=== PATIENT | female | born 1990 | race Asian ===

== ENCOUNTER 2021-02-13 14:06 | Emergency (ER) | payer MEDICAID ==
--- NOTE | 2021-02-13 14:41 | ED Physician Documentation ---
PD HPI ABD PAIN - Stated complaint Stated Complaint: DIZZY/ACHY/STOMACH PX - Chief complaint Chief Complaint: Abd Pain - History obtained from History obtained from: Patient - Additional information Additional information: 30-year-old woman with a history of alcohol use in remission, nonspecified psychiatric disorder and remote history of methamphetamine use but no history of abdominal issues presents with about 2 months of abdominal burning worse after eating associated with 25 pound weight loss and generalized aches that started after ceasing ziprasidone. She assumed it was related withdrawal symptoms but despite giving it 2 months the symptoms are persistent and severe. It is associated with some vaginal discharge as well. She is not sexually active. Review of Systems Ten Systems: 10 systems reviewed and negative Constitutional: reports: Chills, Myalgias, Fatigue, Weight Loss, Sweats. denies: Fever Cardiac: denies: Chest pain / pressure, Palpitations Respiratory: denies: Dyspnea, Cough PD PAST MEDICAL HISTORY - Present Medications Home Medications: Ambulatory Orders Medication Instructions Recorded Confirmed Amox/Clav 875/125 [Augmentin] 1 each PO Q12H #20 tablet 02/13/21 Omeprazole 40 mg PO DAILY #30 cap 02/13/21 metroNIDAZOLE [Flagyl] 500 mg PO BID #14 tablet 02/13/21 - Allergies Allergies/Adverse Reactions: Allergies Allergy/AdvReac Type Severity Reaction Status Date / Time No Known Drug Allergies Allergy Verified 02/13/21 14:20 PD ED PE NORMAL - Vitals Vital signs reviewed: Yes - General General: Alert and oriented X 3, No acute distress - Cardiac Cardiac: RRR, No murmur - Respiratory Respiratory: No respiratory distress, Clear bilaterally - Abdomen Abdomen: Normal bowel sounds, Soft, Non tender - Derm Derm: Normal color, Warm and dry - Neuro Neuro: Alert and oriented X 3, Normal speech Results - Vitals Vitals: Vital Signs - 24 hr 02/13/21 02/13/21 14:12 14:28 Temperature 36.8 C 36.8 C Heart Rate 96 96 Respiratory 22 22 Rate Blood Pressure 158/104 H 158/104 H O2 Saturation 99 99 Oxygen O2 Source Room air - Labs Labs: Microbiology 02/13/21 15:43 Wet Prep - Final Genital - Vaginal Laboratory Tests 02/13/21 02/13/21 02/13/21 14:45 15:09 15:09 WBC 9.2 RBC 5.13 Hgb 15.6 Hct 46.6 MCV 90.8 MCH 30.4 MCHC 33.5 RDW 13.2 Plt Count 252 MPV 10.3 Neut # (Auto) 7.4 H Lymph # (Auto) 1.3 L St[place] # (Auto) 0.4 Eos # (Auto) 0.0 Baso # (Auto) 0.0 Absolute Nucleated RBC 0.00 Nucleated RBC % 0.0 Sodium 138 Potassium 3.9 Chloride 104 Carbon Dioxide 16 L Anion Gap 18.0 H BUN 10 Creatinine 0.8 Estimated GFR (MDRD) 84 L Glucose 83 Calcium 9.8 Total Bilirubin 1.5 H AST 20 ALT 17 Alkaline Phosphatase 53 Total Protein 8.9 H Albumin 5.4 Globulin 3.5 Albumin/Globulin Ratio 1.5 Lipase 25 Urine Color DARK YELLOW Urine Clarity CLOUDY Urine pH 5.5 Ur Specific Noble >=1.030 H Urine Protein TRACE Urine Glucose (UA) NEGATIVE Urine Ketones >=80 H Urine Occult Blood LARGE H Urine Nitrite NEGATIVE Urine Bilirubin NEGATIVE Urine Urobilinogen 0.2 (NORMAL) Ur Leukocyte Esterase TRACE H Urine RBC 11-25 H Urine WBC 4-5 Ur Squamous Epith Cells FEW Squamous Amorphous Sediment Few Urine Bacteria Few Urine Casts 0-2 Hyaline Casts Urine Mucus Few Strands Ur Microscopic Review INDICATED Urine Culture Comments INDICATED Urine HCG, Qual NEGATIVE PD MEDICAL DECISION MAKING - ED course ED course: 30-year-old woman presents with upper abdominal pain a burning sensation worse with eating consistent with gastritis. But she is found today to be dehydrated with trichomonas. Concern for AKA but says she has not been drinking recently. That said she also says she is not sexually active for about a year. She appears well and has a benign examination so we will trial Augmentin and Flagyl for the UTI and trichomonas and a PPI pending follow-up. Departure - Departure Disposition: 01 Home, Self Care Clinical Impression: Dehydration, Trichomonal infection Abdominal pain Qualifiers: Abdominal location: epigastric Qualified Code(s): R10.13 - Epigastric pain Urinary tract infection Qualifiers: Urinary tract infection type: acute cystitis Hematuria presence: with hematuria Qualified Code(s): N30.01 - Acute cystitis with hematuria Condition: Good Record reviewed to determine appropriate education?: Yes Instructions: ED Abdominal Pain Unkn Cause, ED UTI Cystitis Female Prescriptions: Amox/Clav 875/125 [Augmentin] 1 each PO Q12H #20 tablet metroNIDAZOLE [Flagyl] 500 mg PO BID #14 tablet Omeprazole 40 mg PO DAILY #30 cap Comments: As discussed, you were seen today and found to have dehydration. I presume you have gastritis or ulcer as well given your burning upper abdominal pain but she also have a gas-forming UTI. We are culturing your urine and if an antibiotic change is necessary we will call you in a couple of days. I do recommend talking with your doctor about both GI and urology referrals given your frequent UTIs. Return if worsening.
[2021-02-13] MEDS ORDERED: IOPAMIDOL-300 100 ML VIAL ONE (14:46)
[2021-02-13 15:05] LABS: GLUCOSE, URINE (UA) NEGATIVE (NEGATIVE); KETONES,URINE (UA) >=80 mg/dL (NEGATIVE); LEUKOCYTE ESTERASE, URINE TRACE (NEGATIVE); NITRITE,URINE NEGATIVE (NEGATIVE); OCCULT BLOOD,URINE LARGE (NEGATIVE); PH,URINE 5.5 PH (5.0-7.5); PROTEIN,URINE TRACE mg/dL (NEGATIVE); UROBILINOGEN,URINE 0.2 (NORMAL) E.U./dL (NORMAL)
[2021-02-13 15:16] LABS: CLARITY,URINE CLOUDY (CLEAR); HCG UR QUAL NEGATIVE
[2021-02-13 15:17] LABS: AMORPHOUS SEDIMENT,UR Few /LPF; BACTERIA,URINE Few /HPF (None Seen); ICTOTEST,URINE NEGATIVE; MUCUS,URINE Few Strands; SQUAMOUS EPITHELIAL CELL,UR FEW Squamous (<= Few)
[2021-02-13 15:18] LABS: BILIRUBIN,URINE NEGATIVE (NEGATIVE); CASTS, URINE 0-2 Hyaline Casts /LPF
[2021-02-13 15:19] LABS: BASOPHILS % (AUTO) 0.2 %; EOSINOPHILS % (AUTO) 0.1 %; HCT - HEMATOCRIT 46.6 % (37.0-47.0); HGB - HEMOGLOBIN 15.6 g/dL (12.0-16.0); LYMPHOCYTES # (AUTO) 1.3 10^3/uL (1.5-3.5); LYMPHOCYTES % (AUTO) 13.6 %; MEAN CORPUSCULAR HEMOGLOBIN 30.4 pg (27.0-31.0); MEAN CORPUSCULAR HGB CONC 33.5 g/dL (32.0-36.0); MEAN CORPUSCULAR VOLUME 90.8 fL (81.0-99.0); MEAN PLATELET VOLUME 10.3 fL (7.9-10.8); MONOCYTES # (AUTO) 0.4 10^3/uL (0.0-1.0); MONOCYTES % (AUTO) 4.7 %; NEUTROPHILS # (AUTO) 7.4 10^3/uL (1.5-6.6); PLT - PLATELET COUNT 252 10^3/uL (130-450); RED BLOOD COUNT 5.13 10^6/uL (4.20-5.40); RED CELL DISTRIBUTION WIDTH 13.2 % (12.0-15.0); WHITE BLOOD COUNT 9.2 x10^3/uL (4.8-10.8)
[2021-02-13 15:30] LABS: ALBUMIN 5.4 g/dL (3.2-5.5); ALBUMIN/GLOBULIN RATIO 1.5 (1.0-2.2); BILIRUBIN,TOTAL 1.5 mg/dL (0.2-1.0); CALCIUM 9.8 mg/dL (8.5-10.3); CREATININE 0.8 mg/dL (0.4-1.0); POTASSIUM 3.9 mmol/L (3.5-5.0); TOTAL PROTEIN 8.9 g/dL (6.7-8.2)
[2021-02-13] MEDS ORDERED: SODIUM CHLORIDE 0.9% 1,000 ML IV STA (15:33)
--- NOTE | 2021-02-13 16:24 | CT Report ---
PROCEDURE: Abdomen/Pelvis W INDICATIONS: IV only, abd pain CONTRAST: IV CONTRAST: Isovue 300 ml: 100 PO CONTRAST: *NO PO CONTRAST TECHNIQUE: After the administration of intravenous contrast, 5 mm thick sections acquired from the diaphragms to the symphysis. 5 mm thick coronal and sagittal reformats were acquired. For radiation dose reducti on, the following was used: automated exposure control, adjustment of mA and/or kV according to ephraim ent size. COMPARISON: None. FINDINGS: Image quality: Excellent. ABDOMEN: Lung bases: Lung bases are clear. Heart size is normal. Solid organs: Liver and spleen are normal in size and enhancement. Gallbladder is unremarkable. Bi liary system is non dilated. Pancreas enhances normally. No adrenal nodules. Kidneys demonstrate n ormal size and enhancement, without hydronephrosis. Peritoneum and bowel: Bowel loops demonstrate normal wall thickness and caliber. Normal appendix. N o free fluid or air. Nodes and vessels: No retroperitoneal or mesenteric adenopathy by size criteria. Aorta and inferior vena cava are normal in size. Miscellaneous: No ventral hernias. PELVIS: Genitourinary: The bladder is decompressed, with associated wall thickening. A few foci of gas are se en in the nondependent portion of the bladder. Miscellaneous: No inguinal hernias or adenopathy. Bones: No suspicious bony lesions. No vertebral body compression fractures. IMPRESSION: 1. Bladder wall thickening and a few foci of gas within the bladder are suspicious for cystitis with a gas-forming organism if there has been no recent instrumentation. 2. Otherwise, no acute abnormality is identified in the abdomen or pelvis. Reviewed by: Manpreet Chahal MD on 02/13/2021 4:23 PM PDT Approved by: Manpreet Chahal MD on 02/13/2021 4:23 PM PDT Station ID: [id number]
[2021-02-13 16:41] VITALS: BP 128/82
[2021-02-13 17:18] LABS: BACTERIAL VAGINOSIS DNA NEGATIVE (NEGATIVE); CANDIDA GLABRATA DNA NEGATIVE (NEGATIVE); CANDIDA GROUP DNA NEGATIVE (NEGATIVE); CANDIDA KRUSEI DNA NEGATIVE (NEGATIVE); TRICHOMONAS VAGINALIS DNA POSITIVE (NEGATIVE)
[2021-02-13] MEDS ORDERED: IOPAMIDOL-300 100 ML VIAL IVP ONE (21:01)
== END 2021-02-13 16:45 | disposition home or self-care (01) ==
LOC: ED 14:06
DX: E86.0 Dehydration (principal); A59.01 Trichomonal vulvovaginitis; N30.01 Acute cystitis with hematuria
CPT/HCPCS: 36415; 74177; 80053; 81001; 81025; 83690; 85025; 87086; 87210; 87481; 87661; 87801; 99284; Q9967; 81003

== ENCOUNTER 2024-01-28 19:32 | Emergency (ER) | payer BC, MEDICAID ==
[2024-01-28 20:26] VITALS: O2SAT 100
--- NOTE | 2024-01-28 23:46 | ED Physician Documentation ---
History of Present Illness - Stated complaint Stated Complaint: BACK PX - Chief complaint Chief Complaint: Back Pain - History obtained from History obtained from: Patient - Additonal information Additional information: 33-year-old woman with history of sciatica presents with mid lower back pain radiating to the right leg worsening over the past several days, ongoing for the past 6 months. Unrelieved with home gabapentin. Patient denies urinary or fecal incontinence or retention, groin numbness, weakness in the extremities. PD PAST MEDICAL HISTORY - Past Medical History Past Medical History: Yes Cardiovascular: None Respiratory: None, Cystic fibrosis Neuro: None Endocrine/Autoimmune: None GI: None ELECTROMATIC TYPIST: None : None HEENT: None Psych: None Musculoskeletal: None Derm: None Other Past Medical History: SLEEP PROBLEM.... - Past Surgical History Past Surgical History: No - Present Medications Home Medications: Ambulatory Orders Medication Instructions Recorded Confirmed Gabapentin [Neurontin] 300 mg PO DAILY 01/28/24 methocarbamoL [Robaxin] 500 mg PO Q6H #20 tablet 01/28/24 - Allergies Allergies/Adverse Reactions: Allergies Allergy/AdvReac Type Severity Reaction Status Date / Time No Known Drug Allergies Allergy Verified 01/28/24 20:17 - Social History Does the pt smoke?: Yes Smoking Status: Current every day smoker Does the pt drink ETOH?: Yes Does the pt have substance abuse?: No - Immunizations Immunizations are current?: No - POLST Patient has POLST: No PD ED PE NORMAL - Vitals Vital signs reviewed: Yes - General General: Alert and oriented X 3, No acute distress, Well developed/nourished - HEENT HEENT: Atraumatic, PERRL, EOMI - Neck Neck: No bony TTP - Back Back: No spinal TTP - Derm Derm: Normal color, Warm and dry - Extremities Extremities: No deformity, No tenderness to palpate, Normal ROM s pain, Other (CSM intact bilateral lower extremity) - Neuro Neuro: No motor deficit, No sensory deficit Results - Vitals Vitals: Vital Signs - 24 hr 01/28/24 01/28/24 20:07 22:44 Temperature 36.7 C Heart Rate 77 76 Respiratory 16 Rate Blood Pressure 137/80 H 147/86 H O2 Saturation 100 100 Oxygen O2 Source Room air PD Medical Decision Making - ED course ED course: 33-year-old woman presents with sciatica symptoms for the past 6 months, worsen ing over the past several days along with some right lower back spasm. Toradol and Robaxin provided and prescription sent to [facility]. Discussed symptomatic therapy and need for physical therapy. She will follow-up outpatient in walk-in clinic. Return precautions given Departure - Departure Disposition: 01 Home, Self Care Clinical Impression: Back pain, Sciatica Condition: Stable Instructions: ED Sciatica Prescriptions: methocarbamoL [Robaxin] 500 mg PO Q6H #20 tablet Comments: You were seen in the emergency department for back pain. Prescription for robaxin sent to [facility]. Please follow-up with your primary care provider and return to the emergency department if you have any new or worsening symptoms or other concerns.
[2024-01-29] MEDS: methocarbamoL 500 MG TABLET PO STA (00:01)
[2024-01-29] MEDS: KETOROLAC 30 MG/ML VIAL IM STA (00:01)
[2024-01-29 00:13] VITALS: BP 138/82
== END 2024-01-29 00:06 | disposition home or self-care (01) ==
LOC: ED 19:32
DX: M54.41 Lumbago with sciatica, right side (principal); F17.200 Nicotine dependence, unspecified, uncomplicated
CPT/HCPCS: 96372; 99283; A9270